=== PATIENT | male | born 1975 | race Caucasian/White ===

== ENCOUNTER 2018-12-15 09:56 | Day surgery (SDC) | payer OTHER, SELFPAY ==
--- NOTE | 2018-12-15 | PATH_ITS ---
[facility] Accession Number: [id number] . 01 Material submitted: . CECAL POLYP X2 . 02 Diagnosis: Biopsy, Cecal Polyps: Tubular adenoma involving two biopsy fragments. MRV/12/16/2018 . 02 Electronically signed: . Aroldo Pruett MD, Pathologist NPI- [id number] . 01 Gross description: . Received in one formalin-filled container, labeled with the patient's name and labeled cecal polyp x2, are multiple less than 0.1 cm to 0.5 cm portions of tissue, entirely submitted in one cassette. ([id number]) /FRR . 02 Pathologist provided ICD-10: D12.0 . 02 CPT . 862888 Performed at: 01 [facility] [address] [place] [address], [place], [place] [id number] MD Rogers Reyes MD Phone: [phone] Performed at: 02 [facility] [address] [place], [place] [id number] MD Megan Suárez MD Phone: [phone]
[2018-12-15 10:16] VITALS: BP 143/76; PULSE 60; RESP 15; TEMP 36.7; O2SAT 97; BMI 28.4
[2018-12-15] MEDS: SODIUM CHLORIDE 0.9% 1,000 ML 200 ML IV (10:30)
--- NOTE | 2018-12-15 11:46 | PM.PREOP ---
Pre-operative Note Interval Note History & Physical reviewed/Exam performed by Physician: Yes Changes to H&P: No ASA Class (for procedural sedation): I
[2018-12-15] MEDS: MIDAZOLAM 5 MG/5 ML VIAL IV (12:05)
[2018-12-15] MEDS: fentaNYL 250 MCG/5 ML INJ IV (12:06)
[2018-12-15 12:14] VITALS: BP 134/65; PULSE 60; RESP 12; TEMP 36.8; O2SAT 96
[2018-12-15 12:19] VITALS: BP 128/65; PULSE 61; RESP 16; O2SAT 95
--- NOTE | 2018-12-15 12:19 | P.OP.ENDO_ITS ---
Operative Date/Time/Diagnoses Date of procedure: 12/15/18 Procedure & Clinicians Study performed: Colonoscopy with biopsy Indications: Rectal bleeding. This is the patient's first colonoscopy. Sedation: 10 mg midazolam. 150 mcg fentanyl. Moderate conscious sedation was administered by the endoscopy nurse and supervised by the endoscopist. The following parameters were monitored: Oxygen saturation, heart rate, blood pressure, and response to care. Procedure Notes Procedure in detail: Prior to the procedure, history and physical was performed, and patient medications and allergies were reviewed. Preprocedure nursing history and assessment was reviewed. Patient identification and proposed procedure were verified by the physician and nurse in the procedure room. The physical status of the patient was reassessed after the procedure. After informed consent was obtained including risks, benefits, and alternatives, the scope was passed under direct vision. Throughout the procedure, the patient's blood pressure, pulse, and oxygen saturations were monitored continuously. The colonoscope was introduced through the anus and advanced to the cecum as bisi ntified by the appendiceal orifice and ileocecal valve. The patient tolerated the procedure well. Bowel prep was deemed adequate to detect polyps greater than 5 mm. Perianal and BOB were notable for prolapsed internal hemorrhoids. Grade 2 medium-sized internal hemorrhoids were noted during retroflexion. Two 2-3 mm sessile polyps were removed from the cecum with a Jumbo forceps and retrieved. The colon was otherwise unremarkable. Impression: Internal hemorrhoids. This is the source of rectal bleeding Two small polyps removed from the cecum Sedation minutes: 26 Complications: other (None. EBL minimal) Plan for aftercare: Follow-up pathology results Repeat colonoscopy at a date to be determined based on pathology results Resume home medications Resume previous diet Follow-up in GI clinic if rectal bleeding from internal hemorrhoids continues Discharged home with escort
[2018-12-15 12:24] VITALS: BP 125/65; PULSE 62; RESP 14; O2SAT 95
[2018-12-15 12:29] VITALS: BP 123/67; PULSE 62; RESP 11; O2SAT 94
[2018-12-15 12:45] VITALS: BP 132/72; BP 133/72; PULSE 56; PULSE 62; RESP 15; RESP 20; TEMP 36.5; TEMP 37.1; O2SAT 94; O2SAT 99
== END 2018-12-15 12:55 | disposition home or self-care (01) ==
PROVIDERS: Visit Provider Internal Medicine
PROC: 0DJD8ZZ Inspection of Lower Intestinal Tract, Via Natural or Artificial Opening Endoscopic (ICD-10-PCS; CPT 45378; principal; 2018-12-15 11:00)
DX: K62.5 Hemorrhage of anus and rectum (principal); K64.1 Second degree hemorrhoids; Z72.0 Tobacco use; D12.0 Benign neoplasm of cecum
CPT/HCPCS: 45380; 88305; J2250; J3010

== ENCOUNTER 2024-03-24 10:20 | Day surgery (SDC) | payer OTHER, SELFPAY ==
--- NOTE | 2024-03-24 | PATH_ITS ---
[facility] Accession Number: [id number] No. of containers..01 Tissue . 01 Material submitted: . colon - ASCENDING POLYP . 01 Diagnosis: ASCENDING COLON POLYP: Tubular adenoma. MRV 03/30/2024 1636 Local . 01 Electronically signed: . Stef Zaragoza MD, PhD, Pathologist NPI- [id number] . 01 Gross description: . ASCENDING POLYP: Received in formalin is 1 fragment(s) of [place], soft tissue measuring 1.0 x 0.5 x 0.1 cm submitted entirely in 1 cassette(s) /[place] 03/29/2024 1747 Local . 01 Pathologist provided ICD-10: D12.2 . 01 CPT . 247883 Specimen Comment: A courtesy copy of this report has been sent to [phone] Performed at: [address] [facility] [id number] MD Rogers Reyes MD Phone: [phone]
[2024-03-24 10:46] VITALS: BP 144/86; PULSE 72; RESP 16; TEMP 37.2; O2SAT 99
[2024-03-24] MEDS: LACTATED RINGERS 1,000 ML 42 ML IV (10:54)
--- NOTE | 2024-03-24 11:14 | PM.HP.1 ---
History of Present Illness History of Present Illness Date Patient Seen: 03/24/24 Time Patient Seen: 11:14 Chief complaint: Screening Colonoscopy Narrative: Slim is a 49-year-old man who had a colonoscopy in [address] Chiu with tubular adenoma polyps removed. No family history of colon cancer. [facility] Social History household members: spouse Smoking Status: Never smoker Meds Home Medications and Allergies Home Medications Medication Instructions Recorded Confirmed Type sildenafil 50 mg tablet (Viagra) 50 mg PO DAILY PRN Erectile 12/15/18 03/24/24 History Dysfunction sodium,potassium,mag sulfates 17.5 See Rx Instructions PO .COMPLEX 01/18/24 Rx gram-3.13 gram-1.6 gram oral soln #354 mL (Suprep Bowel Prep Kit) silodosin 8 mg capsule (Rapaflo) 8 mg PO DAILY 03/24/24 03/24/24 History Allergies Allergy/AdvReac Type Severity Reaction Status Date / Time No Known Drug Allergies Allergy Verified 03/24/24 10:37 Exam Vital Signs (past 8 hours): - 03/24/24 10:46 Temperature 99.0 F Pulse Rate 72 Respiratory Rate 16 Blood Pressure 144/86 H Pulse Oximetry 99 Oxygen Delivery Method Room Air Oxygen Delivery Method Room Air Const General: healthy appearing and No acute distress Resp Effort & Inspection: normal respiratory effort Assessment & Plan Assessment and plan (1) History of colon polyps: Status: Acute Plan We reviewed the risks and benefits of colonoscopy for history of colon polyps and he would like to proceed.
[2024-03-24 11:50] VITALS: BP 103/73; PULSE 73; RESP 16; TEMP 36.8; O2SAT 95
--- NOTE | 2024-03-24 11:52 | PM.OP.COLON ---
Operative Date/Time/Diagnoses Date of procedure: 03/24/24 Time of procedure: 11:53 Pre-op diagnosis: Colon cancer screening and history of colon polyps Post-op diagnosis: same Procedure & Clinicians Study performed: Colonoscopy Surgeon: Liu Guido Procedure Notes Procedure in detail: Surgeon: Liu Guido MD Anesthesia: Deena Angela MD Procedure: The patient was brought to the endoscopy suite, placed in left lateral decubitus position. The patient was connected to monitoring devices. A time-out was performed. Sedation was administered. Once the patient was adequately sedated, a digital rectal exam was performed and was normal. The scope was then inserted and advanced to the cecum where the appendiceal orifice was identified and photographed. The scope was then slowly withdrawn over greater than 6 minutes. The mucosa was thoroughly inspected. There was a 3 mm polyp in the ascending colon removed with a cold snare. No other abnormalities were found. The scope was retroflexed in the rectum. No other abnormalities were seen. The scope was straightened and removed. The patient was awakened and brought to recovery. Scope withdrawal time: 9 minutes Sedation time: 15 minutes EBL: 5 mL Findings: 3 mm ascending colon polyp Post-procedure Disposition: PACU
[2024-03-24 11:55] VITALS: BP 105/69; PULSE 68; RESP 13; O2SAT 95
[2024-03-24 12:02] VITALS: BP 106/72; PULSE 64; RESP 11; TEMP 36.3; O2SAT 94
== END 2024-03-24 12:10 | disposition home or self-care (01) ==
PROVIDERS: Referring Provider Surgery; Visit Provider Surgery
PROC: 0DJD8ZZ Inspection of Lower Intestinal Tract, Via Natural or Artificial Opening Endoscopic (ICD-10-PCS; CPT 45378; principal; 2024-03-24 11:15)
DX: Z12.11 Encounter for screening for malignant neoplasm of colon (principal); Z86.010 Personal history of colon polyps; D12.2 Benign neoplasm of ascending colon
CPT/HCPCS: 45385